=== PATIENT | male | born 1995 | race Caucasian/White ===

== ENCOUNTER 2019-10-14 13:58 | Outpatient (CLI) | payer MEDICAID, SELFPAY ==
--- NOTE | 2019-10-14 14:17 | DI.RAD_ITS ---
EXAM: XR ANKLE LT COMPLETE INDICATION: ANKLE JOINT PAIN LT, [id number]. COMPARISON: LEFT ANKLE COMPLETE from 02/18/2014 TECHNIQUE: 2D digital imaging was performed. FINDINGS: No acute fracture or ankle mortise widening is seen. No talar dome defect is identified. There is a gain noted to be a smoothly marginated bony density beneath the tip of the medial malleolus. There i s some soft tissue swelling, greatest around the lateral malleolus. There is prominent spurring of t he lateral aspect of the talus, beneath the lateral malleolus. There has been no change in the appea annaebl of ossicles versus old fractures at the dorsal aspect of the navicular and proximal cuneiforms. IMPRESSION: No acute abnormality.
== END 2019-10-14 14:18 ==
PROVIDERS: PCP Family Medicine; Visit Provider Nurse Practitioner Family
DX: M25.572 Pain in left ankle and joints of left foot (principal); M79.89 Other specified soft tissue disorders
CPT/HCPCS: 73610